=== PATIENT | male | born 2000 | race Caucasian/White ===

== ENCOUNTER 2022-09-08 07:44 | Inpatient (IN) | payer BC ==
[~2022-09-08] VITALS: Ht 185.4 cm; Wt 81.6 kg
[2022-09-08 08:07] VITALS: BP_SYST 130
[2022-09-08] MEDS ORDERED: ONDANSETRON 4 MG ODT TAB PO ONE (08:15)
[2022-09-08 08:43] LABS: BASOPHILS % (AUTO) 0.1 % (0.0-2.0); HEMATOCRIT 34.2 % (36-54); HEMOGLOBIN 11.5 g/dL (14.0-18.0); LYMPHOCYTES # (AUTO) 0.3 K/uL (1.0-5.5); LYMPHOCYTES % (AUTO) 1.2 % (20.5-51.5); MEAN CORPUSCULAR HEMOGLOBIN 29 pg (27-31); MEAN CORPUSCULAR HGB CONC 34 % (32-36); MEAN CORPUSCULAR VOLUME 87 fL (79.0-98.0); MONOCYTES # (AUTO) 1.3 K/uL (0.0-1.0); MONOCYTES % (AUTO) 5.5 % (1.7-9.3); NEUTROPHILS # (AUTO) 21.1 K/uL (1.8-7.7); NEUTROPHILS % (AUTO) 93.2 % (40.0-70.0); PLATELET COUNT (AUTO) 243 K/uL (130-430); RED BLOOD CELL COUNT(AUTO) 3.94 MIL/uL (4.2-6.2); RED CELL DISTRIBUTION WIDTH 16.7 % (9.0-15.0); WHITE BLOOD COUNT (AUTO) 22.7 K/uL (4.8-10.8)
[2022-09-08 09:00] LABS: ANION GAP 11 (5-15); CALCIUM 9.4 mg/dL (8.4-11.0); CHLORIDE 101 mmol/L (98-107); CREATININE 5.18 mg/dL (0.55-1.30); GFR AFRICAN AMERICAN 18 mL/min (>90); GLUCOSE 173 mg/dL (70-99); UREA NITROGEN, BLOOD 73 mg/dL (8-21)
[2022-09-08 09:04] LABS: ALANINE AMINOTRANSFERASE 55 U/L (12-78); ALBUMIN 3.9 g/dL (3.4-4.8); AMYLASE 48 U/L (0-100); ASPARTATE AMINOTRANSFERASE 19 U/L (10-37); LIPASE 209 U/L (73-393); TOTAL BILIRUBIN 0.6 mg/dL (0.0-1.0)
[2022-09-08 09:14] LABS: C-REACTIVE PROTEIN QUANT < 0.2 mg/dL (0-0.5)
[2022-09-08] MEDS ORDERED: CALC667T6 PO (09:33)
[2022-09-08] MEDS ORDERED: DEC4 PO (09:33)
[2022-09-08] MEDS ORDERED: FURO-149 PO (09:33)
[2022-09-08] MEDS ORDERED: DIPH50CA38 PO (09:33)
[2022-09-08] MEDS ORDERED: VALS80TA2 PO (09:33)
[2022-09-08] MEDS ORDERED: VITD2000 PO (09:33)
[2022-09-08] MEDS ORDERED: PRO40 PO (09:33)
[2022-09-08] MEDS ORDERED: TOPXL100 PO (09:33)
[2022-09-08] MEDS ORDERED: AMLO5TAB4 PO (09:33)
[2022-09-08] MEDS ORDERED: PRED10TA PO (09:33)
[2022-09-08] MEDS ORDERED: METO-290 PO (09:33)
[2022-09-08] MEDS ORDERED: PRED20TA PO (09:33)
[2022-09-08] MEDS ORDERED: CAT2PAT TD (09:33)
[2022-09-08 10:35] LABS: ACETONE, SERUM NEGATIVE (NEGATIVE)
[2022-09-08] MEDS ORDERED: PIPERACILLIN/TAZO 4.5GM/DEX-IS 100 ML IV SCH (10:45)
[2022-09-08] MEDS ORDERED: PIPERACILLIN/TAZO 4.5GM/DEX-IS 100 ML IV ONE (11:00)
[2022-09-08] MEDS ORDERED: VANCOMYCIN HCL 1,000 MG in NS 250 ML IV ONE (11:00)
[2022-09-08] MEDS ORDERED: 0.45% NS 500 ML IV ONE (11:15)
[2022-09-08] MEDS ORDERED: CALCIUM ACETATE 667 MG CAP PO ONE (11:30)
[2022-09-08] MEDS ORDERED: DIPHENHYDRAMINE HCL 50 MG CAPSULE PO PRN (11:30)
[2022-09-08] MEDS ORDERED: predniSONE 20 MG TABLET PO ONE (11:30)
[2022-09-08 11:34] LABS: BILIRUBIN,URINE NEGATIVE (NEGATIVE); BLOOD, URINE 2+ (NEGATIVE); CLARITY/URINE SLIGHTLY HAZY (CLEAR); COLOR,URINE YELLOW (YELLOW); GLUCOSE,URINE NEGATIVE (NEGATIVE); KETONES,URINE NEGATIVE (NEGATIVE); LEUKOCYTE ESTERASE ,URINE NEGATIVE (NEGATIVE); NITRITE, URINE NEGATIVE (NEGATIVE); PROTEIN URINE 2+ (NEGATIVE); UROBILINOGEN,URINE 0.2 (0.2-1.0)
[2022-09-08 11:54] LABS: BACTERIA,URINE FEW /HPF (None Seen); WBC,URINE 0-3 /HPF (0-3)
[2022-09-08] MEDS ORDERED: METOPROLOL SUCCINATE 50 MG TAB.SR.24H (TOPROL XL) PO ONE (12:00)
[2022-09-08] MEDS ORDERED: FUROSEMIDE 40 MG TABLET PO ONE (12:00)
[2022-09-08] MEDS ORDERED: CHOLECALCIFEROL (VITAMIN D3) 5,000 UNIT TABLET PO ONE (12:00)
[2022-09-08] MEDS ORDERED: amLODIPine BESYLATE 5 MG TABLET PO ONE (12:00)
[2022-09-08] MEDS ORDERED: cloNIDine HCL 0.2 MG/24 HR PATCH.TDWK TD SCH ×2 (12:00)
[2022-09-08] MEDS ORDERED: VANCOMYCIN HCL 1000 MG/VIAL IV ONE (12:49)
[2022-09-08] MEDS ORDERED: FUROSEMIDE 20 MG TABLET ONE (13:04)
[2022-09-08] MEDS ORDERED: cloNIDine HCL 0.1 MG TABLET ONE (13:05)
[2022-09-08 14:04] VITALS: BP_SYST 150
[2022-09-08 14:05] VITALS: BP_SYST 150
[2022-09-08] MEDS ORDERED: BISMUTH SUBSALICYLATE 262 MG TAB.CHEW PO PRN (15:00)
[2022-09-08] MEDS: CALCIUM ACETATE 667 MG CAP PO SCH ×2 (16:35→20:23)
[2022-09-08 16:51] VITALS: BP_SYST 163
[2022-09-08 20:00] VITALS: BP_SYST 144
[2022-09-08] MEDS ORDERED: NALOXONE HCL 0.4 MG/ML AMP (NARCAN) IVP PRN (20:15)
[2022-09-08] MEDS: HYDROcodone/ACETAMIN 5-325 MG TAB (NORCO/ VICODIN) PO PRN (20:22)
[2022-09-09 00:09] VITALS: BP_SYST 141
[2022-09-09] MEDS: HYDROcodone/ACETAMIN 5-325 MG TAB (NORCO/ VICODIN) PO PRN ×2 (05:19→17:37)
[2022-09-09 07:13] LABS: HEMATOCRIT 36.1 % (36-54); HEMOGLOBIN 11.9 g/dL (14.0-18.0); LYMPHOCYTES % (AUTO) 4.8 % (20.5-51.5); MEAN CORPUSCULAR HEMOGLOBIN 29 pg (27-31); MEAN CORPUSCULAR HGB CONC 33 % (32-36); MEAN CORPUSCULAR VOLUME 87 fL (79.0-98.0); MONOCYTES # (AUTO) 1.3 K/uL (0.0-1.0); MONOCYTES % (AUTO) 6.4 % (1.7-9.3); NEUTROPHILS # (AUTO) 17.5 K/uL (1.8-7.7); NEUTROPHILS % (AUTO) 88.8 % (40.0-70.0); PLATELET COUNT (AUTO) 259 K/uL (130-430); RED BLOOD CELL COUNT(AUTO) 4.13 MIL/uL (4.2-6.2); RED CELL DISTRIBUTION WIDTH 16.6 % (9.0-15.0); WHITE BLOOD COUNT (AUTO) 19.8 K/uL (4.8-10.8)
[2022-09-09 07:14] LABS: CALCIUM 9.8 mg/dL (8.4-11.0); CREATININE 5.29 mg/dL (0.55-1.30)
[2022-09-09 08:00] VITALS: BP_SYST 151
[2022-09-09] MEDS: PANTOPRAZOLE SODIUM 40 MG TAB PO SCH (08:30)
[2022-09-09] MEDS: CALCIUM ACETATE 667 MG CAP PO SCH ×4 (08:31→21:21)
[2022-09-09] MEDS: FUROSEMIDE 40 MG TABLET PO SCH (08:31)
[2022-09-09] MEDS: amLODIPine BESYLATE 5 MG TABLET PO SCH (08:31)
[2022-09-09] MEDS: CHOLECALCIFEROL (VITAMIN D3) 5,000 UNIT TABLET PO SCH (08:32)
[2022-09-09] MEDS: METOPROLOL SUCCINATE 50 MG TAB.SR.24H (TOPROL XL) PO SCH (08:32)
[2022-09-09] MEDS ORDERED: PIPERACILLIN/TAZO 2.25G/DEX-IS 50 ML IV ONE (09:00)
[2022-09-09] MEDS ORDERED: LOSARTAN POTASSIUM 50 MG TABLET (COZAAR) PO SCH (09:00)
[2022-09-09 09:47] VITALS: BP_SYST 147
[2022-09-09 11:45] VITALS: BP_SYST 146
[2022-09-09] MEDS: PIPERACILLIN/TAZO 2.25G/DEX-IS 50 ML IV SCH ×2 (15:01→21:40)
[2022-09-09 16:54] VITALS: BP_SYST 156
[2022-09-09 20:00] VITALS: BP_SYST 149
[2022-09-10 00:44] VITALS: BP_SYST 146
[2022-09-10] MEDS: PIPERACILLIN/TAZO 2.25G/DEX-IS 50 ML IV SCH ×4 (03:44→20:44)
[2022-09-10 05:31] LABS: BASOPHILS % (AUTO) 0.2 % (0.0-2.0); EOSINOPHILS % (AUTO) 0.3 % (0.0-4.0); HEMATOCRIT 30.9 % (36-54); HEMOGLOBIN 10.6 g/dL (14.0-18.0); LYMPHOCYTES % (AUTO) 14.2 % (20.5-51.5); MEAN CORPUSCULAR HEMOGLOBIN 30 pg (27-31); MEAN CORPUSCULAR HGB CONC 34 % (32-36); MEAN CORPUSCULAR VOLUME 87 fL (79.0-98.0); MONOCYTES # (AUTO) 0.7 K/uL (0.0-1.0); MONOCYTES % (AUTO) 9.4 % (1.7-9.3); NEUTROPHILS # (AUTO) 5.6 K/uL (1.8-7.7); NEUTROPHILS % (AUTO) 75.9 % (40.0-70.0); PLATELET COUNT (AUTO) 160 K/uL (130-430); RED BLOOD CELL COUNT(AUTO) 3.57 MIL/uL (4.2-6.2); RED CELL DISTRIBUTION WIDTH 16.4 % (9.0-15.0); WHITE BLOOD COUNT (AUTO) 7.3 K/uL (4.8-10.8)
[2022-09-10] MEDS: HYDROcodone/ACETAMIN 5-325 MG TAB (NORCO/ VICODIN) PO PRN (05:38)
[2022-09-10 05:58] LABS: CALCIUM 9.4 mg/dL (8.4-11.0); CREATININE 5.14 mg/dL (0.55-1.30)
[2022-09-10 08:53] VITALS: BP_SYST 136
[2022-09-10] MEDS: FUROSEMIDE 40 MG TABLET PO SCH (09:29)
[2022-09-10] MEDS: PANTOPRAZOLE SODIUM 40 MG TAB PO SCH (09:29)
[2022-09-10] MEDS: CALCIUM ACETATE 667 MG CAP PO SCH ×4 (09:29→20:44)
[2022-09-10] MEDS: CHOLECALCIFEROL (VITAMIN D3) 5,000 UNIT TABLET PO SCH (09:30)
[2022-09-10] MEDS: METOPROLOL SUCCINATE 50 MG TAB.SR.24H (TOPROL XL) PO SCH (09:30)
[2022-09-10] MEDS: amLODIPine BESYLATE 5 MG TABLET PO SCH (09:31)
[2022-09-10 10:32] LABS: BASOPHILS % (AUTO) 0.4 % (0.0-2.0); EOSINOPHILS % (AUTO) 0.4 % (0.0-4.0); HEMATOCRIT 31.2 % (36-54); HEMOGLOBIN 10.6 g/dL (14.0-18.0); LYMPHOCYTES % (AUTO) 12.4 % (20.5-51.5); MEAN CORPUSCULAR HEMOGLOBIN 30 pg (27-31); MEAN CORPUSCULAR HGB CONC 34 % (32-36); MEAN CORPUSCULAR VOLUME 87 fL (79.0-98.0); MONOCYTES # (AUTO) 0.8 K/uL (0.0-1.0); MONOCYTES % (AUTO) 9.7 % (1.7-9.3); NEUTROPHILS # (AUTO) 6.1 K/uL (1.8-7.7); NEUTROPHILS % (AUTO) 77.1 % (40.0-70.0); PLATELET COUNT (AUTO) 157 K/uL (130-430); RED BLOOD CELL COUNT(AUTO) 3.59 MIL/uL (4.2-6.2); RED CELL DISTRIBUTION WIDTH 16.5 % (9.0-15.0); WHITE BLOOD COUNT (AUTO) 7.8 K/uL (4.8-10.8)
[2022-09-10 10:42] LABS: ERYTHROCYTE SEDIMENTATION RATE < 1 MM/HR (0-15)
[2022-09-10 13:02] VITALS: BP_SYST 143
[2022-09-10] MEDS ORDERED: HEPARIN SODIUM,PORCINE 5,000 UNITS/ML VIAL MC ONE (15:15)
[2022-09-10 16:00] VITALS: BP_SYST 135
[2022-09-10 20:00] VITALS: BP_SYST 136
[2022-09-10 20:13] LABS: CREATININE 5.14 mg/dL (0.55-1.30)
[2022-09-11 00:30] VITALS: BP_SYST 125
[2022-09-11] MEDS: PIPERACILLIN/TAZO 2.25G/DEX-IS 50 ML IV SCH ×3 (02:18→14:31)
[2022-09-11 07:40] LABS: BASOPHILS % (AUTO) 0.2 % (0.0-2.0); EOSINOPHILS % (AUTO) 0.5 % (0.0-4.0); HEMATOCRIT 35.6 % (36-54); LYMPHOCYTES # (AUTO) 0.7 K/uL (1.0-5.5); LYMPHOCYTES % (AUTO) 11.2 % (20.5-51.5); MEAN CORPUSCULAR HEMOGLOBIN 29 pg (27-31); MEAN CORPUSCULAR HGB CONC 34 % (32-36); MEAN CORPUSCULAR VOLUME 87 fL (79.0-98.0); MONOCYTES # (AUTO) 0.8 K/uL (0.0-1.0); MONOCYTES % (AUTO) 11.3 % (1.7-9.3); NEUTROPHILS # (AUTO) 5.1 K/uL (1.8-7.7); NEUTROPHILS % (AUTO) 76.8 % (40.0-70.0); PLATELET COUNT (AUTO) 185 K/uL (130-430); RED BLOOD CELL COUNT(AUTO) 4.09 MIL/uL (4.2-6.2); RED CELL DISTRIBUTION WIDTH 16.7 % (9.0-15.0); WHITE BLOOD COUNT (AUTO) 6.7 K/uL (4.8-10.8)
[2022-09-11 07:56] LABS: ALBUMIN 3.7 g/dL (3.4-4.8); CALCIUM 9.3 mg/dL (8.4-11.0); CREATININE 5.66 mg/dL (0.55-1.30); PHOSPHORUS 6.1 mg/dL (2.7-4.5); TOTAL BILIRUBIN 1.4 mg/dL (0.0-1.0)
[2022-09-11 08:23] VITALS: BP_SYST 131
[2022-09-11] MEDS: CHOLECALCIFEROL (VITAMIN D3) 5,000 UNIT TABLET PO SCH (08:32)
[2022-09-11] MEDS: CALCIUM ACETATE 667 MG CAP PO SCH ×4 (08:32→21:07)
[2022-09-11] MEDS: PANTOPRAZOLE SODIUM 40 MG TAB PO SCH (08:33)
[2022-09-11] MEDS: FUROSEMIDE 40 MG TABLET PO SCH (08:33)
[2022-09-11] MEDS: METOPROLOL SUCCINATE 50 MG TAB.SR.24H (TOPROL XL) PO SCH (08:34)
[2022-09-11] MEDS: amLODIPine BESYLATE 5 MG TABLET PO SCH (08:35)
[2022-09-11 11:23] VITALS: BP_SYST 106
[2022-09-11 15:24] VITALS: BP_SYST 121
[2022-09-11 20:00] VITALS: BP_SYST 122
[2022-09-11] MEDS: metroNIDAZOLE 250 mg/NS 50 ML IV SCH (21:07)
[2022-09-12 00:14] VITALS: BP_SYST 104
[2022-09-12] MEDS: metroNIDAZOLE 250 mg/NS 50 ML IV SCH (05:35)
[2022-09-12] MEDS: CHOLECALCIFEROL (VITAMIN D3) 5,000 UNIT TABLET PO SCH (08:56)
[2022-09-12] MEDS: CALCIUM ACETATE 667 MG CAP PO SCH ×2 (08:56→12:27)
[2022-09-12] MEDS: PANTOPRAZOLE SODIUM 40 MG TAB PO SCH (08:56)
[2022-09-12] MEDS: FUROSEMIDE 40 MG TABLET PO SCH (08:58)
[2022-09-12] MEDS: amLODIPine BESYLATE 5 MG TABLET PO SCH (08:59)
[2022-09-12] MEDS: METOPROLOL SUCCINATE 50 MG TAB.SR.24H (TOPROL XL) PO SCH (08:59)
[2022-09-12 09:08] VITALS: BP_SYST 119
[2022-09-12] MEDS ORDERED: METR-154 PO (09:59)
[2022-09-12] MEDS ORDERED: CIPR250T4 PO (09:59)
[2022-09-12 10:35] VITALS: BP_SYST 129
[2022-09-12 11:23] VITALS: BP_SYST 122
[2022-09-12 14:29] VITALS: BP_SYST 129
== END 2022-09-12 15:00 | disposition home or self-care (01) | DRG 872 ==
LOC: SED 07:44 → SMU 11:20
PROVIDERS: ADMIT Preventive Medicine Preventive Medicine/Occupational Environmental Medicine; ATTEND Preventive Medicine Preventive Medicine/Occupational Environmental Medicine
PROC: 5A1D70Z Performance of Urinary Filtration, Intermittent, Less than 6 Hours Per Day (ICD-10-PCS; principal; 2022-09-10)
DX: A41.9 Sepsis, unspecified organism (principal); N02.8 Recurrent and persistent hematuria with other morphologic changes; D84.9 Immunodeficiency, unspecified; N17.9 Acute kidney failure, unspecified; K52.9 Noninfective gastroenteritis and colitis, unspecified; Z20.822 Contact with and (suspected) exposure to COVID-19; N18.9 Chronic kidney disease, unspecified; Z99.2 Dependence on renal dialysis; Z79.899 Other long term (current) drug therapy
CPT/HCPCS: 36415; 71045; 76376; 80048; 80053; 81000; 82009; 82150; 82575; 83605; 83690; 84100; 85025; 85651-TC; 86140; 87040; 87177; 87230-TC; 90935; 96365; 96366; 96367; 99285; J0696; J1644; J2543; J3370; J3490; J7060; J7512; Q0162